=== PATIENT | female | born 1995 | race Caucasian/White ===

== ENCOUNTER 2018-10-03 08:22 | Emergency (ER) | payer BC ==
[2018-10-03 08:30] VITALS: PULSE 60; TEMP 97.5; BMI 15.6
[2018-10-03] MEDS ORDERED: SODIUM CHLORIDE 0.9% 1000 ML INFUS.BAG IV ONE ×2 (08:39→09:53)
--- NOTE | 2018-10-03 08:43 | PDOC ---
History of Present Illness - General Chief Complaint: Syncope/Near Syncope Stated Complaint: I PASSED OUT Time Seen by Provider: 10/03/18 08:25 History Source: Patient Exam Limitations: No Limitations - History of Present Illness Initial Comments: 10/03/18 08:39 22 yo F wtih h/o anorexia currently at a facility for eating disorders only there for short time, here in ed with syncopal episode this am. pt states felt hot racing heart beat followed by syncope. did eat breakfast. recently started on lamictal and abilify. denies bulemia. currently still feels lightheaded. no h/o prior syncope. no other complaints. denies any drug use.started menses night prior. Past History - Past Medical History Allergies/Adverse Reactions: Allergies Allergy/AdvReac Type Severity Reaction Status Date / Time ibuprofen Allergy Verified 10/03/18 08:25 prednisone Allergy Verified 10/03/18 08:25 Home Medications: Ambulatory Orders Aripiprazole [Abilify] 2 mg PO HS 10/03/18 Lamotrigine [Lamictal] 25 mg PO DAILY 10/03/18 COPD: No Psychiatric Problems: Yes - Suicide/Smoking/Psychosocial Hx Smoking History: Never smoked Hx Alcohol Use: No Drug/Substance Use Hx: No Review of Systems - Review of Systems Constitutional: No: Chills, Diaphoresis HEENTM: No: Eye Pain Respiratory: No: Cough, Orthopnea, Shortness of Breath Cardiac (ROS): Yes: Lightheadedness, Syncope. No: Chest Pain : No: Burning, Dysuria, Discharge Neurological: Yes: Dizziness. No: Headache, Numbness, Paresthesia, Tremors All Other Systems: Reviewed and Negative *Physical Exam - Vital Signs Last Vital Signs Temp Pulse Resp BP Pulse Ox 97.5 F L 60 18 94/58 L 100 10/03/18 08:23 10/03/18 08:23 10/03/18 08:23 10/03/18 08:23 10/03/18 08:23 - Physical Exam Comments: 10/03/18 08:42 awake alert lungs clear bilaterally heart rrr no mrg abd soft nt nd. ext wwp no edema. no rash. ext thin. skin warm and dry. nuero alert oriented x 3. Moderate Sedation - Procedure Monitoring Vital Signs: Procedure Monitoring Vital Signs Temperature 97.5 F L 10/03/18 08:23 Pulse Rate 60 10/03/18 08:23 Respiratory Rate 18 10/03/18 08:23 Blood Pressure 94/58 L 10/03/18 08:23 O2 Sat by Pulse Oximetry (%) 100 10/03/18 08:23 Heart Score/ECG Review #1 General ECG Interpretation: Sinus Rhythm, Normal Intervals, No acute ischemic changes Compared to previous ECG there are: Other (sinus bradycardia 52) ED Treatment Course - LABORATORY CBC & Chemistry Diagram: 10/03/18 08:42 10/03/18 10:13 Medical Decision Making - Medical Decision Making 10/03/18 08:42 differential tox , dehydration electrolyte abnormality, dysryhtymia, . . plan ua utox ucg labs iv hydration reassess. 10/03/18 09:48 pt labs with mild hyponatremia. will repeat after 1 L saline. pt has only been in inpatient treatment for 48 hrs. otherwise unremarkalbe. ekg with sinus bradycarcia. 10/03/18 11:25 pt likely dehydrated , sodium improved from 131 to 133. pt feeling better. will dc back to facility for treatment of anorexia. *DC/Admit/Observation/Transfer Diagnosis at time of Disposition: Hyponatremia, Anorexia, Syncope and collapse - Discharge Dispostion Disposition: HOME Condition at time of disposition: Improved - Referrals - Patient Instructions Printed Discharge Instructions: DI for Syncope in Adults (Fainting), Anorexia- Adult, DI for Hyponatremia Additional Instructions: you sodium was low 131.. after iv fluids it is improved to 133. you should return for vomiting, continued feeling of dizziness, fainting or any concerns. you should also follow up wtih your regular doctor for repeat labs within one week. - Post Discharge Activity
[2018-10-03 09:15] LABS: EOS % 2.7 % (0-4.5); HEMATOCRIT 41.1 % (32.4-45.2); HEMOGLOBIN 13.9 GM/dl (10.7-15.3); LYMPH % 14.2 % (8-40); MCH 31.4 pg (25.7-33.7); MCHC 33.9 g/dl (32.0-36.0); MEAN CELL VOLUME 92.4 fl (80-96); MEAN PLT VOLUME 8.4 fl (7.5-11.1); NEUT % 79.1 % (42.8-82.8); PLATELET COUNT 245 K/MM3 (134-434); RBC 4.44 M/mm3 (3.60-5.2); WHITE BLOOD COUNT 8.3 K/mm3 (4.0-10.8)
[2018-10-03 09:22] LABS: ALBUMIN 4.2 g/dl (3.5-5.0); ALK PHOS 45 U/L (32-92); ANION GAP 6 MMOL/L (8-16); BILIRUBIN,TOTAL 0.7 mg/dl (0.2-1.0); BLOOD UREA NITROGEN 6 mg/dl (7-18); CALCIUM 8.8 mg/dl (8.4-10.2); CHLORIDE 101 mmol/L (98-107); CO2 24 mmol/L (22-28); CREATININE 0.8 mg/dl (0.6-1.3); GLUCOSE,RANDOM 107 mg/dl (74-106); POTASSIUM 3.7 mmol/L (3.5-5.1); SGOT/AST 19 U/L (10-42); SGPT/ALT 12 U/L (10-40); SODIUM 131 mmol/L (136-145); TOT PROT 6.6 g/dl (6.4-8.3)
[2018-10-03 09:54] LABS: URINE APPEARANCE CLEAR; URINE BILIRUBIN NEGATIVE (NEGATIVE); URINE COLOR YELLOW; URINE GLUCOSE (UA) NEGATIVE (NEGATIVE); URINE KETONE NEGATIVE (NEGATIVE)
[2018-10-03 09:55] LABS: URINE LEUK ESTERASE NEGATIVE (NEGATIVE); URINE NITRITE NEGATIVE (NEGATIVE); URINE PROTEIN NEGATIVE (NEGATIVE); URINE UROBILINOGEN 0.2 (0.2-1.0)
[2018-10-03 10:04] LABS: EPI CELLS 1+ /HPF; URINE RBC 0-3 /hpf (0-3); URINE WBC 0-3 (0-5)
[2018-10-03 10:05] LABS: URINE BACTERIA FEW /hpf (NEGATIVE)
[2018-10-03 11:03] LABS: ANION GAP 5 MMOL/L (8-16); BLOOD UREA NITROGEN 6 mg/dl (7-18); CALCIUM 8.5 mg/dl (8.4-10.2); CHLORIDE 105 mmol/L (98-107); CO2 23 mmol/L (22-28); CREATININE 0.7 mg/dl (0.6-1.3); GLUCOSE,RANDOM 96 mg/dl (74-106); POTASSIUM 3.7 mmol/L (3.5-5.1); SODIUM 133 mmol/L (136-145)
[2018-10-03 11:04] LABS: COCAINE, UR NEGATIVE ng/ml (CUTOFF=300); METHADONE, UR NEGATIVE ng/ml (CUTOFF=300); OPIATES, URI NEGATIVE ng/ml (CUTOFF=300); PHENCYCLIDINE,URINE NEGATIVE ng/ml (CUTOFF=25); URINE AMPHETAMINES NEGATIVE ng/ml (CUTOFF=500); URINE BARBITURATES NEGATIVE ng/ml (CUTOFF=200); URINE BENZODIAZEPINES NEGATIVE ng/ml (CUTOFF=200)
[2018-10-03 11:38] VITALS: BP 95/56
--- NOTE | 2018-10-04 19:39 | EKG ---
Test Reason : Blood Pressure : / mmHG Vent. Rate : 052 BPM Atrial Rate : 052 BPM P-R Int : 140 ms QRS Dur : 096 ms QT Int : 434 ms P-R-T Axes : 078 084 069 degrees QTc Int : 403 ms SINUS BRADYCARDIA OTHERWISE NORMAL ECG NO PREVIOUS ECGS AVAILABLE Confirmed by ISABELLE SERRANO, JARET ([id number]) on 10/04/2018 7:39:21 PM Referred By: MIL AMEZQUITA Confirmed By:JARET WALTON MD
== END 2018-10-03 11:45 | disposition home or self-care (01) ==
LOC: FER 08:22
PROC: 3E0337Z Introduction of Electrolytic and Water Balance Substance into Peripheral Vein, Percutaneous Approach (ICD-10-PCS; principal; 2018-10-03)
DX: R63.0 Anorexia (principal); Z68.1 Body mass index [BMI] 19.9 or less, adult; R55 Syncope and collapse; E87.1 Hypo-osmolality and hyponatremia
CPT/HCPCS: 36415; 80048; 80053; 80307; 81003; 81015; 84703; 85025; 93005; 99284-25; J7030